=== PATIENT | male | born 1980 | race African-American/Black ===

== ENCOUNTER 2016-12-12 23:08 | Emergency (ER) | payer BC ==
[~2016-12-12 23:08] MED LIST: MULTIVIT/MIN PO
== END 2016-12-13 01:00 | disposition home or self-care (01) ==
LOC: ER 23:08
DX: S40.011A Contusion of right shoulder, initial encounter (principal); Z91.013 Allergy to seafood; Z79.899 Other long term (current) drug therapy; W04.XXXA Fall while being carried or supported by other persons, initial encounter
CPT/HCPCS: 73030-RT; 99283